=== PATIENT | female | born 1960 | race Two or more races ===

== ENCOUNTER 2022-01-18 05:40 | Day surgery (SDC) | payer OTHER | END 2022-01-18 09:40 | disposition home or self-care (01) | LOC: AMB-ENDOS 05:40 | PROVIDERS: ATTEND Surgery | DX: D12.0 Benign neoplasm of cecum (principal); Z20.822 Contact with and (suspected) exposure to COVID-19; I10 Essential (primary) hypertension ==

== ENCOUNTER 2023-02-28 06:00 | Day surgery (SDC) | payer OTHER | END 2023-02-28 10:40 | disposition home or self-care (01) | LOC: AMB-ENDOS 06:00 | PROVIDERS: ATTEND Surgery | DX: K57.30 Diverticulosis of large intestine without perforation or abscess without bleeding (principal); D12.0 Benign neoplasm of cecum; D12.6 Benign neoplasm of colon, unspecified; Z20.822 Contact with and (suspected) exposure to COVID-19 ==

== ENCOUNTER 2024-12-21 09:00 | Day surgery (SDC) | payer OTHER ==
[2024-12-21] MEDS ORDERED: fentaNYL CITRATE 50 MCG/ML AMPUL IV PUSH ONE (12:30)
[2024-12-21] MEDS ORDERED: DIPHENHYDRAMINE HCL 50 MG/ML VIAL 1ML IV ONE (12:30)
[2024-12-21] MEDS ORDERED: MIDAZOLAM HCL 2 MG/2 ML VIAL IV ONE (12:30)
[2024-12-21] MEDS ORDERED: NALOXONE HCL 0.4 MG/ML AMPUL IV ONE (12:45)
[2024-12-21] MEDS ORDERED: FLUMAZENIL 0.5 MG/5 ML ML IV ONE (12:45)
== END 2024-12-21 15:35 | disposition home or self-care (01) ==
LOC: AMB-ENDOS 09:00
PROVIDERS: ATTEND Surgery
DX: K63.5 Polyp of colon (principal); K57.30 Diverticulosis of large intestine without perforation or abscess without bleeding; Z80.0 Family history of malignant neoplasm of digestive organs